=== PATIENT | male | born 1985 | race Caucasian/White ===

== ENCOUNTER 2024-09-05 11:35 | Emergency (ER) | payer SELFPAY ==
[2024-09-05 11:59] VITALS: BP 131/83
--- NOTE | 2024-09-05 13:24 | ED.MUSCINJ ---
HPI-Injury
General
Chief Complaint: Fall
Source: patient
Exam Limitations: none
Time Seen by Provider: 09/05/24 12:51
Nursing documentation reviewed up to this point in time: agreed with
History of Present Illness-Injury
Initial Injury comments:
38-year-old male was at a friend's house yesterday slipped on the snow and fell onto his left shoulder. He has persistent pain in the shoulder. He denies any other injury.
Past History
Past History
ED Past Medical History: None
ED Past Surgical History: Appendectomy
Social History
Tobacco: Non-smoker
Review of Systems
Review of Systems
Allergies reviewed?: Yes
All Other Systems: ROS reviewed and negative except as documented in HPI and ROS
Musculoskeletal: Reports joint pain (Left shoulder); Denies neck pain or back pain
Skin: Reports no symptoms
Neurological: Denies numbness
Musculoskeletal Injury Exam
Musculoskeletal Injury Exam
Left Shoulder:
Pain with Movement?: Moderate
Tender to palpation?: Mild
External deformity and angulation?: None
Strain- Sprain- Tear (Connective tissue injury)?: Mild (To moderate.)
Crepitus with movement?: No
Joint instability?: No
Malalignment/deformity?: No
Range of motion: Limited
Distal skin color and temperature: normal-warm & good color
Normal distal neurovascular exam?: Yes
Phy Exam
Physical Exam
Physical Exam:
PHYSICAL EXAMINATION:
General: no apparent distress, not acutely ill
Neuro: alert and oriented.
Psychiatric: well kept. interactive and cooperative
Musculoskeletal: Moves with ease
Skin: Warm, pink.
Injury Course
Orders/Labs/Results
Orders:
Orders
09/05/24 12:02
Shoulder, Left, Trauma CR [CR Shoulder, Trauma - Left] Urgent
Comment:
Reason For Exam: pain
MDM/Problems Addressed
Differential Diagnosis Includes:
Fracture, sprain, rotator cuff injury
MDM/Problems Addressed:
38-year-old male was at a friend's house yesterday slipped on the snow and fell onto his left shoulder. He has persistent pain in the shoulder. He denies any other injury.
X-ray left shoulder initially read by this examiner: No abnormality noted.
Adequate ROM, distal neurovascular intact.
1:30 p.m.
Sling ordered, pt left prior to sling application and DC instructions, took sling w him
Discussed referral to ortho but he didn't wait for his instructions
*Critical Care Note
Total Time (30-74mins, 75-104mins- exclusive of procedures): Not Applicable
ED Attending Note
-
Portions of this chart may have been created with voice recognition software.� Occasional wrong word or��sound alike� substitutions may have occurred due to the inherent limitations of voice recognition software.
Discharge Plan
Departure
Patient Disposition: Home (Routine Discharge)
Date of Disposition: 09/05/24
Time of Disposition: 13:28
Patient with high blood pressure during this ER visit?: No
Condition: Good
Discharge Problem:
Fall from slip, trip, or stumble, Injury of left shoulder
Instructions: Shoulder Sprain, Rotator Cuff Injury (DC), Using Cold for Pain
Referrals:
Doyle Arizmendi MD [Active] - Next open appointment
Activity Restrictions/Additional Instructions:
As we discussed, Tylenol or ibuprofen as needed for pain.
Cold compress to the area 20 minutes off and on is much as you can in the next 2 days
Wear the sling as needed but not for more than 3 days.
After 2 days of rest, start moving the arm more and more as comfort permits to avoid frozen shoulder.
See the orthopedic doctor in 1-2 weeks if not much improved by then as you may need further studies.
Interventions
Interventions:
*Risk Screen - Suicide Last Done: 09/05/24 11:59
*General Assessment Last Done: 09/05/24 13:01
*Neglect/Abuse Screening Last Done: 09/05/24 13:01
*Nursing Disposition Last Done: 09/05/24 13:38
ED-Musculoskeletal Assessment Last Done: 09/05/24 13:00
Discharge Date and Time
Discharge Date/Time: 09/05/24 13:39
Print Language: DOMINICAN
== END 2024-09-05 13:39 | disposition home or self-care (01) ==
LOC: EMR 11:35
PROVIDERS: EMERGENCY PHYSICIAN Student in an Organized Health Care Education/Training Program
DX: S49.92XA Unspecified injury of left shoulder and upper arm, initial encounter (principal); W00.0XXA Fall on same level due to ice and snow, initial encounter
CPT/HCPCS: 99283; 73030